=== PATIENT | female | born 1970 | race Caucasian/White ===

== ENCOUNTER → 2019-09-20 10:51 | Outpatient (CLI) | payer OTHER, SELFPAY ==
--- NOTE | 2019-09-20 | DI.RAD.S_ITS ---
PROCEDURE: XR HIP W PEL IF DONE LT 2V INDICATIONS: left hip pain TECHNIQUE: AP pelvis with lateral view(s) of the left hip(s). COMPARISON: None. FINDINGS: Bones: No fractures or dislocations. Prior right total hip arthroplasty, partially visualized low lumbosacral spine fusion procedure between L4 and L5 Pelvic ring appears intact. No suspicious bony lesions. Soft tissues: The visualized bowel gas pattern is normal. No suspicious soft tissue calcifications. IMPRESSION: No trauma found, of note is made of mild osteoarthritis at the left hip. Prior right total hip arthroplasty showing no evidence of device loosening or disruption. Dictated by: Onel Santacruz M.D. on 09/20/2019 at 12:20 Approved by: Onel Santacruz M.D. on 09/20/2019 at 12:21
== END ==
PROVIDERS: Family Provider Family Medicine; PCP Family Medicine; Referring Provider Family Medicine; Visit Provider Family Medicine
DX: M25.552 Pain in left hip (principal); M16.12 Unilateral primary osteoarthritis, left hip; Z96.641 Presence of right artificial hip joint
CPT/HCPCS: 73502

== ENCOUNTER → 2019-10-07 09:04 | Outpatient (CLI) | payer OTHER, SELFPAY ==
--- NOTE | 2019-10-07 | DI.MRI.S_ITS ---
PROCEDURE: MR HIP LT WO CON INDICATIONS: Unilateral primary osteoarthritis, left hip TECHNIQUE: Noncontrast coronal T1 spin echo and STIR through the bony pelvis. Coronal and axial T2 fast spin echo with fat saturation, sagittal T1 spin echo, and oblique axial T2 fast spin echo with fat saturation through the hip. COMPARISON: [facility] Outside [facility], RG, PELVIS 1 OR 2VW, 03/11/2016, 10:21. FINDINGS: Image quality: Excellent. Bones and joints: Postsurgical changes are seen from right total hip arthroplasty. Surgical fixation on the right is also noted in the lumbar spine. A well-demarcated T2 hyperintense lesion in the right iliac bone extending to the acetabulum may represent fibrous dysplasia or a bone cyst versus an intraosseous ganglion. No aggressive features are identified.. Tendons and ligaments: The gluteus medius and minimus tendons appear intact, without associated muscle atrophy. The nearby proximal iliotibial band also appears intact. The iliopsoas tendon appears intact, without adjacent bursal fluid collections or evidence for impingement syndrome. The origin of the hamstring tendon is intact at the ischial tuberosity, as well as the associated sacrotuberous ligament. The straight and reflected heads of the rectus femoris muscle origin appear intact, as well as the conjoint tendon. The ligamentum teres appears intact where visualized. Labrum and cartilage: Full-thickness cartilage loss is seen in the superior aspect of the left hip joint with mild subchondral edema in the acetabulum and mild lateral acetabular spurring. There is degeneration of the anterior and superior labrum including a nondisplaced tear and small 5 mm paralabral cyst anterior superiorly. The femoral head and acetabular morphology appears normal. Soft tissues: A non-specific fluid collection is seen posterolateral to the right hip, likely related to the prior surgery. Visualized muscles demonstrate normal bulk and internal signal. Quadratus femoris muscle demonstrates no internal edema to suggest ischiofemoral impingement. The proximal sciatic neurovascular bundle appears normal adjacent to the hamstring tendons trace free fluid in the pelvis is considered physiologic. Bladder wall thickness is normal. Genitourinary structures and bowel loops appear normal where visualized. IMPRESSION: 1. Full-thickness cartilage loss in the superior aspect of the left hip with subchondral edema and marginal osteophyte formation. 2. Degeneration and nondisplaced tearing of the anterior superior labrum with a 5 mm paralabral cyst. 3. Postsurgical changes from right total hip arthroplasty. A well-defined fluid collection posterolateral to the right hip may represent a postsurgical seroma or a chronic trochanteric bursal effusion. 4. Well-circumscribed nonaggressive appearing T2-hyperintense lesion in the right iliac bone was described in the prior MR pelvis report from 2007 (images are currently unavailable), and is considered benign. 5. Postsurgical changes in the included portion of the lower lumbar spine. Dictated by: Corey Justice M.D. on 10/07/2019 at 9:51 Approved by: Corey Justice M.D. on 10/07/2019 at 10:06
== END ==
PROVIDERS: Family Provider Family Medicine; PCP Family Medicine; Referring Provider Family Medicine; Visit Provider Family Medicine
DX: M16.12 Unilateral primary osteoarthritis, left hip (principal); S73.102A Unspecified sprain of left hip, initial encounter; Z96.641 Presence of right artificial hip joint
CPT/HCPCS: 73721

== ENCOUNTER 2019-12-09 16:41 | Emergency (ER) | payer OTHER, SELFPAY ==
[2019-12-09] VITALS (10 sets, daily range): BP systolic 118–155; BP diastolic 55–67; PULSE 66–86; RESP 16; TEMP 36.9; O2SAT 95–100; BMI 32.5
[2019-12-09 19:28] LABS: Bacteria Urine None Seen; RBC Urine None Seen (0-5/HPF)
[2019-12-09 19:29] LABS: Appearance Urine UA CLEAR; Bilirubin Urine UA NEGATIVE (NEGATIVE); Color Urine UA YELLOW; Glucose Urine UA NEGATIVE (Negative); Ketones Urine UA TRACE (NEGATIVE); Leukocyte Esterase Urine UA NEGATIVE (NEGATIVE); Nitrite Urine UA NEGATIVE (Negative); Occult Blood Urine UA NEGATIVE (Negative); Protein Urine UA NEGATIVE (Negative); Urobilinogen Urine UA 0.2 E.U./dL (0.2)
[2019-12-09 19:38] LABS: Amorphous Sediment Urine 1+; Culture Indicated Urine Cult Not Indicated; Mucus Urine 2+ (Negative); Squamous Epithelial Cell Urine 1-5 /HPF (0-5/HPF); WBC Urine 0-1/HPF (0-5/HPF)
[2019-12-09 19:44] LABS: Add Manual Diff / Slide Review NO; Basophils Absolute Auto 0 /uL (0-100); Basophils Percent Auto 0.3 % (0-2); Eosinophils Absolute Auto 0 /uL (0-450); Hematocrit 31.2 % (36-46); Lymphocytes Absolute Auto 500 /uL (1100-4500); Lymphocytes Percent Auto 8.4 % (25-40); Mean Corpuscular Hemoglobin 23.8 PG (26-34); Mean Corpuscular Volume 74.3 fL (80-100); Monocytes Absolute Auto 400 /uL (0-900); Monocytes Percent Auto 5.8 % (3-14); Neutrophils Absolute Auto 5200 /uL (1500-7000); Neutrophils Percent Auto 85.5 % (50-75); Platelet Count 314 X10^3/uL (150-400); Red Cell Distribution Width 16.7 % (11.6-14.8)
[2019-12-09 19:57] LABS: Alanine Aminotransferase 49 IU/L (<35); Albumin 3.9 g/dL (3.5-5.0); Albumin Globulin Ratio 1.1 (1.0-2.8); Alkaline Phosphatase 105 U/L (38-126); Aspartate Aminotransferase 63 IU/L (14-36); BUN Creatinine Ratio 18.9 (6-22); Bilirubin Total 0.8 mg/dL (0.2-1.3); Blood Urea Nitrogen 10 mg/dL (7-17); Calcium 8.7 mg/dL (8.4-10.2); Carbon Dioxide 30 mmol/L (22-32); Chloride 100 mmol/L (98-107); Estimated Glomerular Filt Rate > 60.0 mL/min (>60); Globulin 3.4 g/dL (1.7-4.1); Glucose 104 mg/dL (70-100); HEMOLYSIS < 15 (0-50); Potassium 3.3 mmol/L (3.4-5.1); Sodium 135 mmol/L (137-145); Total Protein 7.3 g/dL (6.3-8.2)
[2019-12-09] MEDS: HYDROCODONE/ACET 5/325 TABLET 1 TAB PO (20:05)
[2019-12-09 20:20] LABS: Lipase 163 U/L (23-300)
--- NOTE | 2019-12-09 20:35 | DI.CT.S_ITS ---
PROCEDURE: CT ABDOMEN PELVIS W CON INDICATIONS: periumbilical and pelvic/flank pain TECHNIQUE: After the administration of intravenous contrast, 5 mm thick sections acquired from the diaphragm to the symphysis. 5 mm coronal and sagittal reformats were acquired. For radiation dose reduction, the following was used: automated exposure control, adjustment of mA and/or kV according to patient size. COMPARISON: None. FINDINGS: Image quality: Excellent. ABDOMEN: Lung bases: Lung bases are clear. Heart size is normal. Solid organs: Liver is normal in size and enhancement. Gallbladder is distended. No visible pericholecystic inflammation. No visible calcifications . The intrahepatic biliary tree is mildly dilated. The extrahepatic common duct is normal caliber. Pancreas enhances normally. Spleen is normal in size and enhancement. No adrenal nodules. Kidneys demonstrate normal size and enhancement, without hydronephrosis. Peritoneum and bowel: Bowel loops demonstrate normal wall thickness and caliber. Increased quantity of solid stool present in the colon. A very short appendix or appendiceal stump is present without inflammation. No free fluid or air. Nodes and vessels: No retroperitoneal or mesenteric adenopathy by size criteria. Aorta and inferior vena cava are normal in size. Miscellaneous: Tiny fat containing umbilical hernia. PELVIS: Genitourinary: Bladder wall thickness is normal. Uterus and ovaries appear normal. Miscellaneous: No inguinal hernias or adenopathy. Bones: No suspicious bony lesions. There is surgical fixation at the L4-5 level and right hip arthroplasty changes. Degenerative disc and endplate changes in the lumbar spine. Block vertebra of T12-L1. No vertebral body compression fractures. IMPRESSION: 1. Distended gallbladder and mild intrahepatic biliary dilatation. There may be a noncalcified biliary obstruction. Correlate with LFTs and consider right upper quadrant ultrasound. 2. Increased stool quantity. 3. No other acute process. Dictated by: Agnes Griggs M.D. on 12/09/2019 at 21:21 Approved by: Agnes Griggs M.D. on 12/09/2019 at 21:27
--- NOTE | 2019-12-09 20:35 | DI.US.S_ITS ---
PROCEDURE: US PELVIC COMPLETE INDICATIONS: PELVIC PAIN. POSSIBLE ABSCESS TECHNIQUE: Real-time scanning was performed of the pelvic organs, with image documentation. Additional endovaginal scanning was necessary due to incomplete visualization of the adnexal and endometrial structures by transabdominal scanning. COMPARISON: [facility], CT, CT ABDOMEN PELVIS W CON, 12/09/2019, 20:37. FINDINGS: Transabdominal scanning: Limited scanning through the kidneys shows no hydronephrosis. No pathologic free abdominal or pelvic fluid. Endovaginal scanning: Uterus: Uterus is normal in size at 10.6 x 5.0 x 7.7 cm. Uterus is retroverted. There is a 2.4 x 1.3 x 2.0 centimeter left posterior intramural uterine fibroid. The endometrium measures 10.8 mm in combined thickness. Trace fluid noted within the cervical canal. Ovaries: Right ovary measures 3.5 x 2.5 by 3.4 centimeters. Left ovary measures 3.0 x 1.8 x 2.3 centimeters. There is a 2.5 x 1.4 x 2.5 centimeter complex right ovarian cyst which may represent hemorrhagic cyst. Doppler evaluation demonstrates normal vascular flow in the ovaries. IMPRESSION: 1. Uterine fibroid. 2. 2.5 x 1.4 x 2.5 centimeter complex right ovarian cyst which likely represents a hemorrhagic cyst. Recommend follow-up pelvic ultrasound in 4-6 weeks to assess for resolution of the finding. 3. No evidence of ovarian torsion. Please note ultrasound cannot exclude intermittent ovarian torsion. Dictated by: Jennifer Plata MD, PhD on 12/10/2019 at 8:39 Approved by: Jennifer Plata MD, PhD on 12/10/2019 at 8:42
--- NOTE | 2019-12-09 20:38 | ED.FEMALEGU ---
HPI - Female Genitourinary <Shania Davis PA-C - Last Filed: 12/10/19 11:26> General Chief complaint: Urogenital-Female Stated complaint: fever,body aches, dry heaves, chills Time Seen by Provider: 12/09/19 19:04 Source: patient Mode of arrival: Ambulatory Limitations: no limitations History of Present Illness HPI Narrative: 49 F with a history of a right hip replacement, lumbar spinal surgery, chronic urinary urgency and dyspareunia presents to the emergency department complaining of low-grade fever, chills, pelvic pain and pressure, nausea and vomiting. Patient states that she was diagnosed with a urinary tract infection few weeks ago started on Macrobid for 2 days but her symptoms worsened, she was then started on Cipro took a high dose of this for 3 days improved but never really ?got better? then her symptoms returned again last night, she has been having worsening pelvic pain very low down in addition to nausea and 1 episode of vomiting earlier today. She has been feeling increasing pelvic pressure and pain and while she has chronic difficulty urinating she feels this has worsened in the last 24 hours. She went to her primary care provider and they noted that she should see gynecology as an outpatient for possible prolapse, they later advised her she should come to the emergency department to get imaging done in the event that she could potentially have a pelvic abscess. Patient is on regular pain medicine regimen due to her chronic pain issues, initially notes her pain to be fairly low but then later says it is creeping up to an 8 or 9. Patient endorses dyspareunia ever since her back surgery and even prior to her surgery. She is unsure if this has worsened recently. Related Data Home Medications Medication Instructions Recorded Confirmed AMOXICILLIN/CLAVULANATE POTASS 875 mg PO BID #0 05/06/07 (Augmentin) IBUPROFEN (Motrin / Advil) 600 mg PO BID #0 05/06/07 Oxycodone/Acetaminophen (Percocet 0 PO * UK DOSE/FREQUENCY #0 05/06/07 5-325 MG Tablet) Promethazine HCl (Phenergan) 25 mg PO PRN #0 05/06/07 RIMANTADINE HCL (Flumadine) 100 mg PO BID #0 05/06/07 Previous Rx's Medication Instructions Recorded ciprofloxacin HCl 500 mg PO BID 7 Days #14 tab 12/10/19 ondansetron 4 mg PO Q8H #14 tab 12/10/19 oxycodone-acetaminophen 1 tab PO Q8H PRN #14 tab 12/10/19 Allergies Allergy/AdvReac Type Severity Reaction Status Date / Time No Known Drug Allergies Allergy Verified 12/09/19 20:05 Review of Systems <Shania Davis PA-C - Last Filed: 12/10/19 11:26> Review of Systems Narrative: GENERAL: Positive for chills yesterday, negative for fatigue, malaise, positive for low-grade fever last night, sweats. HEENT: Denies sinus pain, ear pain, sore throat, difficulty swallowing, dizziness. RESPIRATORY: Denies dyspnea, cough, wheezing, hemoptysis, sputum. CARDIOVASCULAR: Denies chest pain, palpitations, orthopnea, edema, GASTROINTESTINAL: Positive for nausea, vomiting, pelvic abdominal pain, mild diarrhea earlier today, negative for constipation, melena. : Denies dysuria, frequency, incontinence, hematuria, urinary retention, positive for urgency, difficulty urinating. MUSCULOSKELETAL: denies weakness, joint pain, or bony pain SKIN: Denies rash, skin lesions, or other NEUROLOGIC: Denies weakness, headache, numbness, change in speech, confusion, seizures, incoordination. PSYCHIATRIC: No concerning psychosocial issues. 12 point review of systems is negative except for those stated above Patient History <Shania Davis PA-C - Last Filed: 12/10/19 11:26> alcohol intake frequency: a few times a month Alcohol type: wine Substance Use Type: does not use Exam <Shania Davis PA-C - Last Filed: 12/10/19 11:26> Narrative Exam Narrative: GENERAL: 49 year old patient appears stated age. Well-nourished, well-developed patient, in mild distress. HEAD: Atraumatic. Normocephalic. EYES: Pupils equal round and reactive. Extraocular motions intact. No scleral icterus. No injection or drainage. ENT: Nose without bleeding, purulent drainage. Throat without erythema, tonsillar hypertrophy or exudate. Airway patent. NECK: Trachea midline. Non tender CARDIOVASCULAR: Regular rate and rhythm without murmurs, gallops, or rubs. RESPIRATORY: Clear to auscultation. Breath sounds equal bilaterally. No wheezes, rales, or rhonchi. GASTROINTESTINAL: Abdomen soft, she is tender over the epigastric area, slightly tender over the right upper quadrant, negative Ramos's sign, she is tender over the periumbilical region and very low in the pelvis over the bladder otherwise non-tender, nondistended. : Exam performed with female RN present as records analysis manager also in the room. External genitalia normal in appearance, no lesions. After placing the speculum the patient had significant discomfort, was not able to insert the speculum far enough to clearly visualize the cervical os, small amount of whitish yellow discharge present in the vaginal vault. I think it is possible that the patient may have a prolapse of her bladder into the vaginal vault, did perform a bimanual exam, patient had moderate tenderness with this and was most notably tender on the patient's left internally, believed to feel a small palpable mass in the area of tenderness and discomfort for the patient. EXTREMITIES: No edema or joint tenderness. BACK: There is a midline scar over the lumbar region, she is tender on the right flank, otherwise Nontender without deformity or crepitance. No left flank tenderness. NEURO: AOx3. SKIN: No rash or erythema of visible areas Initial Vital Signs Initial Vital Signs: Vital Signs Temperature 98.5 F 12/09/19 16:54 Pulse Rate 78 12/09/19 16:54 Respiratory Rate 16 12/09/19 16:54 Blood Pressure 139/62 12/09/19 16:54 Pulse Oximetry 95 12/09/19 16:54 <Ej Champion MD - Last Filed: 12/13/19 07:31> Initial Vital Signs Initial Vital Signs: Vital Signs Temperature 98.5 F 12/09/19 16:54 Pulse Rate 78 12/09/19 16:54 Respiratory Rate 16 12/09/19 16:54 Blood Pressure 139/62 12/09/19 16:54 Pulse Oximetry 95 12/09/19 16:54 Scores <Shania Davis PA-C - Last Filed: 12/10/19 11:26> GCS Aurora coma scale eye opening: Spontaneous Aurora coma scale verbal response: Orientated Aurora coma scale motor response: Obey commands Aurora coma scale total score: 15 Course <Shania Davis PA-C - Last Filed: 12/10/19 11:26> Course Course Narrative: Ultrasound arrived, spoke with them and do plan to evaluate the gallbladder as well she does have slight transaminitis, and did have epigastric and right upper quadrant tenderness on exam, as well as concerning changes on her CT in the context of nausea and vomiting so I do feel it is appropriate to evaluate her gallbladder even though this is not her primary complaint when she came in today 2250 Patient did have significant tenderness on the pelvic exam, however I am less inclined to think it is related to PID and more likely correlates to the fibroid noted versus the hemorrhagic cyst in her right ovary. I do think that the patient has had chronic vaginal pain and discomfort since prior to and worsened after her low back surgery, and this is more likely related to nerve issues. Did discuss again with the inpatient the value of following up with gynecology. I do think that she is still suffering from a probable pyelonephritis as she still has right CVA tenderness and I do not think that this is explained by a gallbladder etiology. Her urine today was not remarkable for an evident UTI however she has been on antibiotics recently and I would not expect to see bacteria present. Patient declined swabs for STIs, did do a wet mount to assess for BV and yeast. 12:11 Orders Ordered: Discontinued Medications Acetaminophen/Butalbital/Caffeine (Fioricet) 1 each PO NOW ONE Stop: 12/09/19 20:37 Last Admin: 12/09/19 20:48 Dose: 1 each Documented by: MITA Hydrocodone Bitart/Acetaminophen ([place] 5/325) 1 tab PO NOW ONE Stop: 12/09/19 20:01 Last Admin: 12/09/19 20:05 Dose: 1 tab Documented by: MITA Ciprofloxacin (Cipro) 500 mg PO NOW ONE Stop: 12/10/19 00:47 Last Admin: 12/10/19 00:57 Dose: 500 mg Documented by: HANNAH Hydromorphone HCl (Dilaudid) 1 mg IV NOW ONE Stop: 12/09/19 20:35 Last Admin: 12/09/19 20:47 Dose: 1 mg Documented by: MITA Hydromorphone HCl (Dilaudid) 0.5 mg IV NOW ONE Stop: 12/10/19 00:05 Last Admin: 12/10/19 00:09 Dose: 0.5 mg Documented by: KGALLAG Sodium Chloride (Normal Saline 0.9%) 1,000 mls @ 1,000 mls/hr IV BOLUS ONE Stop: 12/09/19 21:33 Last Infusion: 12/09/19 22:13 Dose: 0 mls/hr Documented by: Admin: 12/09/19 20:48 Dose: 1,000 mls/hr Documented by: MITA Ondansetron HCl (Zofran) 4 mg IV NOW ONE Stop: 12/09/19 20:52 Last Admin: 12/09/19 22:06 Dose: 4 mg Documented by: MITA Oxycodone/Acetaminophen (Percocet 5/325) 1 tab PO NOW ONE Stop: 12/09/19 19:05 Last Admin: 12/09/19 19:58 Dose: Not Given Documented by: MITA Vital Signs Vital signs: Vital Signs - 8 hr 12/09/19 19:45 12/09/19 20:36 12/09/19 20:37 Pulse Rate 77 77 Blood Pressure 155/67 H Pulse Oximetry 100 99 99 12/09/19 21:03 12/09/19 21:04 12/09/19 21:30 Pulse Rate 86 80 66 Blood Pressure 150/67 H 128/60 Pulse Oximetry 99 98 96 12/09/19 22:00 12/09/19 22:30 12/09/19 23:02 Pulse Rate 66 70 68 Blood Pressure 118/58 L 119/55 L Pulse Oximetry 96 95 98 <Ej Chmapion MD - Last Filed: 12/13/19 07:31> Orders Ordered: Discontinued Medications Acetaminophen/Butalbital/Caffeine (Fioricet) 1 each PO NOW ONE Stop: 12/09/19 20:37 Last Admin: 12/09/19 20:48 Dose: 1 each Documented by: MITA Hydrocodone Bitart/Acetaminophen ([place] 5/325) 1 tab PO NOW ONE Stop: 12/09/19 20:01 Last Admin: 12/09/19 20:05 Dose: 1 tab Documented by: MITA Ciprofloxacin (Cipro) 500 mg PO NOW ONE Stop: 12/10/19 00:47 Last Admin: 12/10/19 00:57 Dose: 500 mg Documented by: HANNAH Hydromorphone HCl (Dilaudid) 1 mg IV NOW ONE Stop: 12/09/19 20:35 Last Admin: 12/09/19 20:47 Dose: 1 mg Documented by: MITA Hydromorphone HCl (Dilaudid) 0.5 mg IV NOW ONE Stop: 12/10/19 00:05 Last Admin: 12/10/19 00:09 Dose: 0.5 mg Documented by: KGALLAG Sodium Chloride (Normal Saline 0.9%) 1,000 mls @ 1,000 mls/hr IV BOLUS ONE Stop: 12/09/19 21:33 Last Infusion: 12/09/19 22:13 Dose: 0 mls/hr Documented by: Admin: 12/09/19 20:48 Dose: 1,000 mls/hr Documented by: MITA Ondansetron HCl (Zofran) 4 mg IV NOW ONE Stop: 12/09/19 20:52 Last Admin: 12/09/19 22:06 Dose: 4 mg Documented by: MITA Oxycodone/Acetaminophen (Percocet 5/325) 1 tab PO NOW ONE Stop: 12/09/19 19:05 Last Admin: 12/09/19 19:58 Dose: Not Given Documented by: MITA Vital Signs Vital signs: Vital Signs - 8 hr 12/09/19 19:45 12/09/19 20:36 12/09/19 20:37 Pulse Rate 77 77 Blood Pressure 155/67 H Pulse Oximetry 100 99 99 12/09/19 21:03 12/09/19 21:04 12/09/19 21:30 Pulse Rate 86 80 66 Blood Pressure 150/67 H 128/60 Pulse Oximetry 99 98 96 12/09/19 22:00 12/09/19 22:30 12/09/19 23:02 Pulse Rate 66 70 68 Blood Pressure 118/58 L 119/55 L Pulse Oximetry 96 95 98 MDM - Female Genitourinary <Shania Davis PA-C - Last Filed: 12/10/19 11:26> Differential Diagnosis Differential diagnosis: Likely urinary tract infection, bacterial vaginosis, trichomoniasis, cervicitis, vaginitis, cystitis and other (pyelonephritis, pelvic floor disorder, prolapsed bladder, ovarian cyst, fibroid, cholecystitis) Medical Records Medical records narrative: Lab Data Result diagrams: 12/09/19 19:30 12/09/19 19:30 Labs: Lab Results 12/09/19 12/09/19 12/09/19 Range/Units 19:03 19:30 19:30 WBC 6.0 (4.5-11.0) X10^3/uL RBC 4.20 (4.0-5.2) X10^6/uL Hgb 10.0 L (12.0-16.0) g/dL Hct 31.2 L (36-46) % MCV 74.3 L (80-100) fL MCH 23.8 L (26-34) PG MCHC 32.0 (30-36) % RDW 16.7 H (11.6-14.8) % Plt Count 314 (150-400) X10^3/uL Neut % (Auto) 85.5 H (50-75) % Lymph % (Auto) 8.4 L (25-40) % [place] % (Auto) 5.8 (3-14) % Eos % (Auto) 0.0 L (2-4) % Baso % (Auto) 0.3 (0-2) % Neut # (Auto) 5200 (3837-3849) /uL Lymph # (Auto) 500 L (9537-4249) /uL [place] # (Auto) 400 (0-900) /uL Eos # (Auto) 0 (0-450) /uL Baso # (Auto) 0 (0-100) /uL Sodium 135 L (137-145) mmol/L Potassium 3.3 L (3.4-5.1) mmol/L Chloride 100 (98-107) mmol/L Carbon Dioxide 30 (22-32) mmol/L BUN 10 (7-17) mg/dL Creatinine 0.53 (0.52-1.04) mg/dL Estimated GFR > 60.0 (>60) mL/min BUN/Creatinine Ratio 18.9 (6-22) Glucose 104 H (70-100) mg/dL Calcium 8.7 (8.4-10.2) mg/dL Total Bilirubin 0.8 (0.2-1.3) mg/dL AST 63 H (14-36) IU/L ALT 49 H (<35) IU/L Alkaline Phosphatase 105 (38-126) U/L Total Protein 7.3 (6.3-8.2) g/dL Albumin 3.9 (3.5-5.0) g/dL Globulin 3.4 (1.7-4.1) g/dL Albumin/Globulin Ratio 1.1 (1.0-2.8) Lipase (23-300) U/L Urine Color Yellow Urine Appearance Clear Urine pH 6.0 (4.5-8.0) Ur Specific [place] 1.010 (1.000-1.035) Urine Protein Negative (Negative) Urine Glucose (UA) Negative (Negative) g/dL Urine Ketones Trace H (NEGATIVE) Urine Occult Blood Negative (Negative) Urine Nitrate Negative (Negative) Urine Bilirubin Negative (NEGATIVE) Urine Urobilinogen 0.2 (0.2) E.U./dL Ur Leukocyte Esterase Negative (NEGATIVE) Urine RBC None seen (0-5/HPF) Urine WBC 0-1/hpf (0-5/HPF) Ur Squamous Epith Cells 1-5 /hpf (0-5/HPF) Amorphous Sediment 1+ Urine Bacteria None seen (None) Urine Mucus 2+ H (Negative) Ur Culture Indicated? Cult not indicated COVID-19 PCR (Negative) 12/09/19 12/10/19 Range/Units 19:30 00:12 WBC (4.5-11.0) X10^3/uL RBC (4.0-5.2) X10^6/uL Hgb (12.0-16.0) g/dL Hct (36-46) % MCV (80-100) fL MCH (26-34) PG MCHC (30-36) % RDW (11.6-14.8) % Plt Count (150-400) X10^3/uL Neut % (Auto) (50-75) % Lymph % (Auto) (25-40) % [place] % (Auto) (3-14) % Eos % (Auto) (2-4) % Baso % (Auto) (0-2) % Neut # (Auto) (0785-0722) /uL Lymph # (Auto) (8238-4681) /uL [place] # (Auto) (0-900) /uL Eos # (Auto) (0-450) /uL Baso # (Auto) (0-100) /uL Sodium (137-145) mmol/L Potassium (3.4-5.1) mmol/L Chloride (98-107) mmol/L Carbon Dioxide (22-32) mmol/L BUN (7-17) mg/dL Creatinine (0.52-1.04) mg/dL Estimated GFR (>60) mL/min BUN/Creatinine Ratio (6-22) Glucose (70-100) mg/dL Calcium (8.4-10.2) mg/dL Total Bilirubin (0.2-1.3) mg/dL AST (14-36) IU/L ALT (<35) IU/L Alkaline Phosphatase (38-126) U/L Total Protein (6.3-8.2) g/dL Albumin (3.5-5.0) g/dL Globulin (1.7-4.1) g/dL Albumin/Globulin Ratio (1.0-2.8) Lipase 163 (23-300) U/L Urine Color Urine Appearance Urine pH (4.5-8.0) Ur Specific [place] (1.000-1.035) Urine Protein (Negative) Urine Glucose (UA) (Negative) g/dL Urine Ketones (NEGATIVE) Urine Occult Blood (Negative) Urine Nitrate (Negative) Urine Bilirubin (NEGATIVE) Urine Urobilinogen (0.2) E.U./dL Ur Leukocyte Esterase (NEGATIVE) Urine RBC (0-5/HPF) Urine WBC (0-5/HPF) Ur Squamous Epith Cells (0-5/HPF) Amorphous Sediment Urine Bacteria (None) Urine Mucus (Negative) Ur Culture Indicated? COVID-19 PCR Negative (Negative) Point of Care Testing Test Results Negative Urine Dip Bedside Urine Glucose Negative Bedside Urine Bilirubin - Negative Bedside Urine Ketone - Negative Urine Specific [place] 1.015 Bedside Urine Occult Blood - Negative Bedside Urine pH 6.0 Bedside Urine Protein - Negative Bedside Urine Urobilinogen - Negative Bedside Urine Nitrite - Negative Bedside Urine Leukocytes - Negative Esterase Imaging Data CT scan - abdomen/pelvis: Attestation: I personally reviewed and interpreted this imaging study as follows: Radiologist's Impression: [address] [address] [address] Scan Report Signed Patient: Marina Ellis RMR#: [id number] : 1970Acct:[id number] Age/Sex: 49 / FDate of Service: 12/09/19 Loc: ED Accession Number: [id number] Procedure: CT abdomen pelvis w con Ordering Provider: Shania Davis P.A-C PROCEDURE: CT ABDOMEN PELVIS W CON INDICATIONS: periumbilical and pelvic/flank pain TECHNIQUE: After the administration of intravenous contrast, 5 mm thick sections acquired from the diaphragm to the symphysis. 5 mm coronal and sagittal reformats were acquired. For radiation dose reduction, the following was used: automated exposure control, adjustment of mA and/or kV according to patient size. COMPARISON: None. FINDINGS: Image quality: Excellent. ABDOMEN: Lung bases: Lung bases are clear. Heart size is normal. Solid organs: Liver is normal in size and enhancement. Gallbladder is distended. No visible pericholecystic inflammation. No visible calcifications . The intrahepatic biliary tree is mildly dilated. The extrahepatic common duct is normal caliber. Pancreas enhances normally. Spleen is normal in size and enhancement. No adrenal nodules. Kidneys demonstrate normal size and enhancement, without hydronephrosis. Peritoneum and bowel: Bowel loops demonstrate normal wall thickness and caliber. Increased quantity of solid stool present in the colon. A very short appendix or appendiceal stump is present without inflammation. No free fluid or air. Nodes and vessels: No retroperitoneal or mesenteric adenopathy by size criteria. Aorta and inferior vena cava are normal in size. Miscellaneous: Tiny fat containing umbilical hernia. PELVIS: Genitourinary: Bladder wall thickness is normal. Uterus and ovaries appear normal. Miscellaneous: No inguinal hernias or adenopathy. Bones: No suspicious bony lesions. There is surgical fixation at the L4-5 level and right hip arthroplasty changes. Degenerative disc and endplate changes in the lumbar spine. Block vertebra of T12-L1. No vertebral body compression fractures. IMPRESSION: 1. Distended gallbladder and mild intrahepatic biliary dilatation. There may be a noncalcified biliary obstruction. Correlate with LFTs and consider right upper quadrant ultrasound. 2. Increased stool quantity. 3. No other acute process. Dictated by: Agnes Griggs M.D. on 12/09/2019 at 21:21 Approved by: Agnes Griggs M.D. on 12/09/2019 at 21:27 US - abdomen: Attestation: I personally reviewed and interpreted this imaging study as follows: Radiologist's Impression: Ultrasound abdomen limited comparison: None findings: Liver normal size and echotexture. Right lobe 14.7 cm length. Main portal vein antegrade. Visualized pancreas unremarkable. Gallbladder unremarkable without stone formation or wall thickening. No bile duct dilatation. Common duct 3.4 mm diameter. No ultrasonographic Ramos sign. Impression: No significant abnormalities. Electronically signed On December 09, 2019 11:50 a.m. 3:34 p.m. PTT by: Anshul Das MD US - MACHINE II COREMAKER: Attestation: I personally reviewed and interpreted this imaging study as follows: Radiologist's Impression: Transabdominal and endovaginal pelvic ultrasound with ovarian Doppler studies Findings: Uterus 10.6 cm x 5.0 cm x 7.7 cm. Endometrium 11 mm. No significant fluid in cul-de-sac. 2.4 cm fibroid noted. Right ovary 3.5 cm x 2.5 cm x 3.4 cm. 2.5 cm x 2.5 cm hemorrhagic cyst. Left ovary 3.0 cm x 1.8 cm x 2.3 cm. No focal abnormality Doppler interrogation of the arterial and venous structure of both ovaries performed using color and spectral waveform analysis. There is normal flow to both ovaries without evidence for ovarian torsion. Impression: 2.5 cm hemorrhagic right ovarian cyst. 2.4 cm fibroid noted. Electronically signed December 09, 2019 11:50 a.m. 4:50 p.m. PDT by: Anshul Das MD [facility] Narrative Medical decision making narrative: 49-year-old female history of lumbar surgery, left hip surgery, UTI with pyelonephritis 2 weeks ago presents to the emergency department with feelings of never fully having improved from pyelo, and now 24 hours of new low-grade fever, episode of chills, body aches, episode of vomiting this morning and ongoing nausea with right flank pain and low pelvic pain and pressure, also on complaining of increased feeling of difficulty with urination due to pressure pelvis. Labs unremarkable, however she has been on antibiotics recently, Cipro, ongoing flank tenderness low pelvic pain, CT scan is unremarkable, she did have right upper quadrant tenderness and a positive Ramos sign as well as enlarged gallbladder on CT pelvic ultrasound and gallbladder ultrasound pursued, gallbladder ultrasound returned with no abnormal findings, however she was noted to have a hemorrhagic cyst in her right ovary and a fibroid. Pelvic exam caused pain for the patient however I do not believe she is suffering from PID, given the duration of her pelvic discomfort/long history of dyspareunia and the location of her pain which is very low in her vagina and does not extend into the pelvis. Postvoid residual was 0. Patient is ultimately treated for pyelonephritis based on her flank tenderness and recent returning low-grade fever and chills, COVID returns negative. Blood cultures are not obtained, no evidence of early sepsis. BV yeast Trichomonas returns negative. Patient is advised to follow-up with both Women's Health, gynecology as well as Urology. Etiology of her pain that has worsened and is low in the pelvis is unclear however it could be due to her cyst possibly her fibroid. Do believe she may have some prolapse of her bladder. Uterus was normal on ultrasound. Encourage patient to pursue follow-up care for further evaluation with specialist and patient is in agreement, emergency return precautions provided, all questions answered. <Ej Champion MD - Last Filed: 12/13/19 07:31> Lab Data Labs: Lab Results 12/09/19 12/09/19 12/09/19 Range/Units 19:03 19:30 19:30 WBC 6.0 (4.5-11.0) X10^3/uL RBC 4.20 (4.0-5.2) X10^6/uL Hgb 10.0 L (12.0-16.0) g/dL Hct 31.2 L (36-46) % MCV 74.3 L (80-100) fL MCH 23.8 L (26-34) PG MCHC 32.0 (30-36) % RDW 16.7 H (11.6-14.8) % Plt Count 314 (150-400) X10^3/uL Neut % (Auto) 85.5 H (50-75) % Lymph % (Auto) 8.4 L (25-40) % [place] % (Auto) 5.8 (3-14) % Eos % (Auto) 0.0 L (2-4) % Baso % (Auto) 0.3 (0-2) % Neut # (Auto) 5200 (3693-6306) /uL Lymph # (Auto) 500 L (7458-6652) /uL [place] # (Auto) 400 (0-900) /uL Eos # (Auto) 0 (0-450) /uL Baso # (Auto) 0 (0-100) /uL Sodium 135 L (137-145) mmol/L Potassium 3.3 L (3.4-5.1) mmol/L Chloride 100 (98-107) mmol/L Carbon Dioxide 30 (22-32) mmol/L BUN 10 (7-17) mg/dL Creatinine 0.53 (0.52-1.04) mg/dL Estimated GFR > 60.0 (>60) mL/min BUN/Creatinine Ratio 18.9 (6-22) Glucose 104 H (70-100) mg/dL Calcium 8.7 (8.4-10.2) mg/dL Total Bilirubin 0.8 (0.2-1.3) mg/dL AST 63 H (14-36) IU/L ALT 49 H (<35) IU/L Alkaline Phosphatase 105 (38-126) U/L Total Protein 7.3 (6.3-8.2) g/dL Albumin 3.9 (3.5-5.0) g/dL Globulin 3.4 (1.7-4.1) g/dL Albumin/Globulin Ratio 1.1 (1.0-2.8) Lipase (23-300) U/L Urine Color Yellow Urine Appearance Clear Urine pH 6.0 (4.5-8.0) Ur Specific [place] 1.010 (1.000-1.035) Urine Protein Negative (Negative) Urine Glucose (UA) Negative (Negative) g/dL Urine Ketones Trace H (NEGATIVE) Urine Occult Blood Negative (Negative) Urine Nitrate Negative (Negative) Urine Bilirubin Negative (NEGATIVE) Urine Urobilinogen 0.2 (0.2) E.U./dL Ur Leukocyte Esterase Negative (NEGATIVE) Urine RBC None seen (0-5/HPF) Urine WBC 0-1/hpf (0-5/HPF) Ur Squamous Epith Cells 1-5 /hpf (0-5/HPF) Amorphous Sediment 1+ Urine Bacteria None seen (None) Urine Mucus 2+ H (Negative) Ur Culture Indicated? Cult not indicated COVID-19 PCR (Negative) 12/09/19 12/10/19 Range/Units 19:30 00:12 WBC (4.5-11.0) X10^3/uL RBC (4.0-5.2) X10^6/uL Hgb (12.0-16.0) g/dL Hct (36-46) % MCV (80-100) fL MCH (26-34) PG MCHC (30-36) % RDW (11.6-14.8) % Plt Count (150-400) X10^3/uL Neut % (Auto) (50-75) % Lymph % (Auto) (25-40) % [place] % (Auto) (3-14) % Eos % (Auto) (2-4) % Baso % (Auto) (0-2) % Neut # (Auto) (5755-5909) /uL Lymph # (Auto) (2520-8176) /uL [place] # (Auto) (0-900) /uL Eos # (Auto) (0-450) /uL Baso # (Auto) (0-100) /uL Sodium (137-145) mmol/L Potassium (3.4-5.1) mmol/L Chloride (98-107) mmol/L Carbon Dioxide (22-32) mmol/L BUN (7-17) mg/dL Creatinine (0.52-1.04) mg/dL Estimated GFR (>60) mL/min BUN/Creatinine Ratio (6-22) Glucose (70-100) mg/dL Calcium (8.4-10.2) mg/dL Total Bilirubin (0.2-1.3) mg/dL AST (14-36) IU/L ALT (<35) IU/L Alkaline Phosphatase (38-126) U/L Total Protein (6.3-8.2) g/dL Albumin (3.5-5.0) g/dL Globulin (1.7-4.1) g/dL Albumin/Globulin Ratio (1.0-2.8) Lipase 163 (23-300) U/L Urine Color Urine Appearance Urine pH (4.5-8.0) Ur Specific [place] (1.000-1.035) Urine Protein (Negative) Urine Glucose (UA) (Negative) g/dL Urine Ketones (NEGATIVE) Urine Occult Blood (Negative) Urine Nitrate (Negative) Urine Bilirubin (NEGATIVE) Urine Urobilinogen (0.2) E.U./dL Ur Leukocyte Esterase (NEGATIVE) Urine RBC (0-5/HPF) Urine WBC (0-5/HPF) Ur Squamous Epith Cells (0-5/HPF) Amorphous Sediment Urine Bacteria (None) Urine Mucus (Negative) Ur Culture Indicated? COVID-19 PCR Negative (Negative) Point of Care Testing Test Results Negative Urine Dip Bedside Urine Glucose Negative Bedside Urine Bilirubin - Negative Bedside Urine Ketone - Negative Urine Specific [place] 1.015 Bedside Urine Occult Blood - Negative Bedside Urine pH 6.0 Bedside Urine Protein - Negative Bedside Urine Urobilinogen - Negative Bedside Urine Nitrite - Negative Bedside Urine Leukocytes - Negative Esterase Discharge Plan Departure Patient Disposition: Home Clinical Impression: Pelvic pain, Pyelonephritis, COVID-19 ruled out Discharge Date/Time: 12/10/19 01:30 Instructions: DI for Kidney Infection, DI for Dyspareunia Activity Restrictions/Additional Instructions: Thank you for letting us be part of your care in the emergency department today. Your labs today were looking good, I do think that is appropriate to treat you for pyelonephritis based on the fact that you still have right flank pain over your kidney, in based on your recent symptoms it think it is likely that you need additional antibiotics to treat this. Your ultrasound of your gallbladder actually looked very normal, your gallbladder did look enlarged on the CT scan we performed however I do not think that there is anything of concern with your gallbladder today. Your ultrasound of your pelvis did show that you have a hemorrhagic meaning blood-filled cyst on your right ovary and you also have a fibroid that is about 2.4 cm in size that is seen. It is certainly possible that these could explain some or most of the pain you have been experiencing, however you do have chronic pelvic pain issues and I think these chronic pain issues are more likely related to nerve problems given that you have had multiple surgeries. I do think you should follow-up with a bottom scrubber and/ or urologist for further evaluation and assessment of your pelvic discomfort and assessment of your bladder issues and possible prolapse of your bladder. There is no evidence of a urinary tract infection today however you have been taking antibiotics recently so I would not expect to see this. I am going to prescribe some pain medicine for you as I do think that you are having additional pain related to possibly your cyst and the fibroid you have present. Please take the antibiotics as prescribed as well. I have also provided a work note for you. And include information for our urologist that works out of [facility]. There is no evidence of an emergent or life threatening illness at this time, but follow up with your doctor in 1-2 days is recommended nonetheless to continue to rule out serious underlying causes of your symptoms. Please call the office for an appointment. Please return to the Emergency Department for any worsening or persistent symptoms. Please take medications as directed. Prescriptions: New ciprofloxacin HCl 500 mg tablet 500 mg PO BID 7 Days Qty: 14 RF: 0 ondansetron 4 mg tablet,disintegrating 4 mg PO Q8H Qty: 14 RF: 0 oxycodone-acetaminophen 5-325 mg tablet 1 tab PO Q8H PRN (Reason: pain) Qty: 14 RF: 0 No Action AMOXICILLIN/CLAVULANATE POTASS (Augmentin) 875 mg PO BID Qty: 0 RF: 0 Promethazine HCl (Phenergan) 25 mg PO PRN Qty: 0 RF: 0 Oxycodone/Acetaminophen (Percocet 5-325 MG Tablet) 0 PO * UK DOSE/FREQUENCY Qty: 0 RF: 0 RIMANTADINE HCL (Flumadine) 100 mg PO BID Qty: 0 RF: 0 IBUPROFEN (Motrin / Advil) 600 mg PO BID Qty: 0 RF: 0 Referrals: Margret Cavazos MD [Physician] - Ej Tenorio DO [Primary Care Provider] - Stand Alone Forms: Work Release Note <Ej Champion MD - Last Filed: 12/13/19 07:31> [facility] I was immediately available in the department for consultation. This documentation has been reviewed and I agree with assessment and plan. Supervised by Ej Champion MD
[2019-12-09] MEDS: HYDROMORPHONE 1 MG INJ IV (20:47)
[2019-12-09] MEDS: SODIUM CHLORIDE 0.9% 1,000 ML 1000 ML IV (20:48)
[2019-12-09] MEDS: BUTALB/APAP/CAFFEINE 50/325/40 TABLET 1 EACH PO (20:48)
[2019-12-09] MEDS: ONDANSETRON 4 MG/2 ML INJ IV (22:06)
--- NOTE | 2019-12-09 22:48 | DI.US.S_ITS ---
PROCEDURE: US ABDOMEN LIMITED INDICATIONS: RUQ/epigastric pain N/V TECHNIQUE: Real-time focused scanning was performed of the abdomen, with image documentation. COMPARISON: None. FINDINGS: Liver is normal in size and homogeneous in echotexture. Gallbladder is sonographically normal. No gallstones. No gallbladder wall thickening. No pericholecystic fluid. No sonographic Ramos sign. Biliary tree is nondilated. Common bile duct measures 3.4 millimeters. Pancreas is sonographically normal. IMPRESSION: Normal examination without sonographic evidence of cholelithiasis or cholecystitis. If there is continued clinical concern for cholecystitis, a nuclear medicine HIDA scan should be considered for further evaluation. Dictated by: Jennifer Plata MD, PhD on 12/10/2019 at 8:43 Approved by: Jennifer Plata MD, PhD on 12/10/2019 at 8:44
[2019-12-10] MEDS: HYDROMORPHONE 0.5 MG INJ IV (00:09)
[2019-12-10 00:31] LABS: COVID19 -Nasal RAPID Negative (Negative)
[2019-12-10] MEDS: CIPROFLOXACIN 500 MG TABLET PO (00:57)
== END 2019-12-10 01:30 | disposition home or self-care (01) ==
PROVIDERS: Emergency Provider Student in an Organized Health Care Education/Training Program; Family Provider Family Medicine; PCP Family Medicine; Referring Provider Physician Assistant Medical
DX: N12 Tubulo-interstitial nephritis, not specified as acute or chronic (principal); R11.2 Nausea with vomiting, unspecified; R10.2 Pelvic and perineal pain
CPT/HCPCS: 36415; 51798; 74177; 76705; 76830; 76856; 80053; 81001; 81003; 81025; 83690; 85025; 87210; 87635; 96361; 96374; 96375; 96376; 99284; 99285; J1170; J2405; Q9967

== ENCOUNTER → 2019-12-27 14:51 | Outpatient (CLI) | payer OTHER, SELFPAY ==
[2019-12-27 15:59] LABS: Alanine Aminotransferase 19 IU/L (<35); Albumin 4.3 g/dL (3.5-5.0); Albumin Globulin Ratio 1.3 (1.0-2.8); Alkaline Phosphatase 71 U/L (38-126); Aspartate Aminotransferase 29 IU/L (14-36); Bilirubin Total 0.3 mg/dL (0.2-1.3); Bilirubin Unconjugated 0.1 mg/dL (0.0-1.1); Globulin 3.3 g/dL (1.7-4.1); HEMOLYSIS < 15 (0-50); Total Protein 7.6 g/dL (6.3-8.2)
== END ==
PROVIDERS: Family Provider Family Medicine; PCP Family Medicine; Referring Provider Obstetrics & Gynecology; Visit Provider Obstetrics & Gynecology
DX: R10.11 Right upper quadrant pain (principal)
CPT/HCPCS: 36415; 80076

== ENCOUNTER → 2020-01-04 14:29 | Outpatient (CLI) | payer OTHER, SELFPAY ==
[2020-01-04 15:17] LABS: Bacteria Urine None Seen
[2020-01-04 16:16] LABS: Appearance Urine UA CLEAR; Bilirubin Urine UA NEGATIVE (NEGATIVE); Color Urine UA YELLOW; Glucose Urine UA NEGATIVE (Negative); Ketones Urine UA NEGATIVE (NEGATIVE); Leukocyte Esterase Urine UA NEGATIVE (NEGATIVE); Nitrite Urine UA NEGATIVE (Negative); Occult Blood Urine UA 1+ (Negative); Protein Urine UA NEGATIVE (Negative); Urobilinogen Urine UA 0.2 E.U./dL (0.2)
[2020-01-04 16:54] LABS: Culture Indicated Urine Cult Not Indicated; RBC Urine 1-5/HPF (0-5/HPF); Squamous Epithelial Cell Urine 1-5 /HPF (0-5/HPF); WBC Urine 0-1/HPF (0-5/HPF)
== END ==
PROVIDERS: Family Provider Family Medicine; PCP Family Medicine; Referring Provider Obstetrics & Gynecology; Visit Provider Obstetrics & Gynecology
DX: R30.0 Dysuria (principal)
CPT/HCPCS: 81001

== ENCOUNTER → 2020-01-24 15:00 | Outpatient (CLI) | payer OTHER, SELFPAY ==
[2020-01-24 16:47] LABS: Cancer Antigen 125 8.8 U/mL (0-35)
== END ==
PROVIDERS: Family Provider Family Medicine; PCP Family Medicine; Referring Provider Obstetrics & Gynecology; Visit Provider Obstetrics & Gynecology
DX: N83.201 Unspecified ovarian cyst, right side (principal)
CPT/HCPCS: 36415; 86304

== ENCOUNTER → 2020-02-09 14:11 | Outpatient (CLI) | payer OTHER, SELFPAY ==
[2020-02-09 14:26] LABS: Bacteria Urine None Seen; RBC Urine None Seen (0-5/HPF); WBC Urine None Seen (0-5/HPF)
[2020-02-09 14:41] LABS: Appearance Urine UA CLEAR; Bilirubin Urine UA NEGATIVE (NEGATIVE); Color Urine UA YELLOW; Glucose Urine UA NEGATIVE (Negative); Ketones Urine UA NEGATIVE (NEGATIVE); Leukocyte Esterase Urine UA NEGATIVE (NEGATIVE); Nitrite Urine UA NEGATIVE (Negative); Occult Blood Urine UA NEGATIVE (Negative); Protein Urine UA NEGATIVE (Negative); Specific Gravity Urine UA <=1.005 (1.000-1.035); Urobilinogen Urine UA 0.2 E.U./dL (0.2)
[2020-02-09 15:05] LABS: pH Urine UA 6.5 (4.5-8.0)
[2020-02-09 15:22] LABS: Culture Indicated Urine Cult Not Indicated; Urine Comments Microscopic Normal
== END ==
PROVIDERS: Family Provider Family Medicine; PCP Family Medicine; Referring Provider Obstetrics & Gynecology; Visit Provider Obstetrics & Gynecology
DX: R10.2 Pelvic and perineal pain (principal); R35.0 Frequency of micturition
CPT/HCPCS: 81001

== ENCOUNTER → 2021-10-08 13:04 | Outpatient (CLI) | payer OTHER, SELFPAY ==
--- NOTE | 2021-10-08 13:07 | DI.RAD.S_ITS ---
PROCEDURE: XR KNEE RT 3V INDICATIONS: Pain in right knee TECHNIQUE: 3 views of the knee were acquired. COMPARISON: None. FINDINGS: Bones: No fractures or dislocations. No suspicious bony lesions. Mild narrowing of the medial femorotibial joint and tricompartmental periarticular osteophyte formation. Soft tissues: Small joint effusion. No suspicious soft tissue calcifications. IMPRESSION: Mild tricompartmental knee joint degeneration, most notably involving the medial femorotibial joint. Dictated by: Walter Gibbs [facility] Interpreted: Ortiz Collins MD on 10/08/2021 at 14:07 Transcribed by: SHANDA on 10/08/2021 at 14:08 Approved by: Ortiz Collins M.D. on 10/08/2021 at 16:14
== END ==
PROVIDERS: Family Provider Family Medicine; PCP Family Medicine; Referring Provider Family Medicine; Visit Provider Family Medicine
DX: M25.561 Pain in right knee (principal); M17.11 Unilateral primary osteoarthritis, right knee
CPT/HCPCS: 73562

== ENCOUNTER → 2023-03-07 17:42 | Outpatient (CLI) | payer OTHER, SELFPAY ==
--- NOTE | 2023-03-07 17:43 | DI.MG.S_ITS ---
BILATERAL DIGITAL SCREENING MAMMOGRAM 3D/2D WITH CAD: 03/07/2023 CLINICAL: Routine screening. Comparison is made to exams dated: 02/01/2015 mammogram and 01/18/2011 mammogram - [facility]. Both breasts are heterogeneously dense, which may obscure small masses (category c / 51-75% glandular tissue). Current study was also evaluated with a Computer Aided Detection (CAD) system. There is an oval lymph node in the right breast posterior depth superior region seen on the mediolateral oblique view only. No other significant masses, calcifications, or other findings are seen in either breast. IMPRESSION: INCOMPLETE: NEEDS ADDITIONAL IMAGING EVALUATION The oval enlarged lymph node in the right breast is indeterminate. An axillary ultrasound is recommended. Based on the Tyrer Cuzick model (a risk assessment model) the patient's lifetime risk is 9.6% and her 10 year risk is 2.6%. According to the ACR, ACS, and NCCN guidelines, an annual breast MRI exam along with mammogram is recommended if the patient's lifetime risk is 20% or greater. This exam was interpreted at Station ID: [id number]. NOTE: For mammograms, a report in lay terms will be sent to the patient. Approximately 15% of breast malignancies will not be visualized mammographically. In the management of a palpable breast mass, a negative mammogram must not discourage biopsy of a clinically suspicious lesion. Electronically Signed By: Jaziel Brooks M.D. aty/:03/10/2023 07:35:12 letter sent: Additional Imaging Needed ACR BI-RADS Category 0: Incomplete 3340F
== END ==
PROVIDERS: Family Provider Family Medicine; PCP Family Medicine; Referring Provider Family Medicine; Visit Provider Family Medicine
DX: Z12.31 Encounter for screening mammogram for malignant neoplasm of breast (principal)
CPT/HCPCS: 77063; 77067

== ENCOUNTER → 2023-03-14 14:15 | Outpatient (CLI) | payer OTHER, SELFPAY ==
--- NOTE | 2023-03-14 | DI.US.S_ITS ---
ULTRASOUND OF RIGHT AXILLA: 03/14/2023 CLINICAL: Patient returns today to evaluate lymph nodes in the right axilla. Comparison is made to exams dated: 03/07/2023 mammogram, 02/01/2015 mammogram, and 01/18/2011 mammogram - [facility]. Color flow and real-time ultrasound of the right axilla were performed. Churchill scale images of the real-time examination were reviewed. Right axillary nodes are normal in size with preserved fatty hilums and no cortical thickening. IMPRESSION: BENIGN There is no sonographic evidence of malignancy. No enlarged right axillary lymph nodes. Exam findings were conveyed to the patient. A 1 year screening mammogram is recommended. This exam was interpreted at Station ID: [id number]. Electronically Signed By: Arian Aguilera M.D. slc/:03/14/2023 15:05:41 letter sent: Normal Exam Ultrasound BI-RADS: 2 Benign
== END ==
LOC: US 14:17
PROVIDERS: Family Provider Family Medicine; PCP Family Medicine; Referring Provider Family Medicine; Visit Provider Family Medicine
DX: R92.8 Other abnormal and inconclusive findings on diagnostic imaging of breast (principal)
CPT/HCPCS: 76882

== ENCOUNTER 2023-05-14 08:21 | Emergency (ER) | payer OTHER, SELFPAY ==
[2023-05-14 08:35] VITALS: BP 187/93; PULSE 77; RESP 18; TEMP 36.4; O2SAT 100; BMI 29.9
--- NOTE | 2023-05-14 08:36 | ED.BACK ---
HPI - Back Pain/Injury General Chief Complaint: Back Pain/Injury Stated Complaint: lower back pain, poss kidney related per pt Time Seen by Provider: 05/14/23 08:35 Source: patient, RN notes reviewed and old records reviewed Mode of arrival: Ambulatory Limitations: no limitations History of Present Illness HPI Narrative: This is a 52-year-old female with history of lumbar fusion, bilateral hip replacement, chronic back pain who presents with complaint of acute on chronic left-sided low back pain. Patient states it sort of wraps around towards the front she also notes some paresthesias in the left posterior back and wrapping around. Patient states she has had back pain chronically, she states it is normally manageable, she gets massage twice monthly. She notes she has been recently carrying her new grandchild who weighs 11 lb and maybe exacerbating her symptoms. She does not recall any other injuries or trauma lately. Patient states starting Friday she started to notice some increased discomfort in her lower back, has been sort of slowly increasing over time and localizing more to the left and wrapping around over the hip. Patient states she does have a history of paresthesias from her prior spinal stenosis. Mostly just in her left toes. That has not changed. She has not had increased pain down her legs. She denies fevers or chills. No cold cough or congestion. No GI or urinary symptoms. Pain has become increasingly more uncomfortable and she has not been able to manage it with home medications. She is on sertraline, meloxicam, she takes [place] 10/325 q.i.d. PRN, gabapentin 300 mg nightly. Patient states she took her [place] last night she does not always have to take it 4 times daily but it has not been able to control her pain. Patient had her surgery at [facility] proximally 8 years ago. Related Data Home Medications Medication Instructions Recorded Confirmed gabapentin 300 mg capsule 300 mg PO BID 12/27/19 02/15/20 hydrocodone 10 mg-acetaminophen 1 tab PO Q8H PRN 12/27/19 02/15/20 325 mg tablet meloxicam 7.5 mg tablet 7.5 mg PO DAILY 12/27/19 02/15/20 sertraline 25 mg tablet 25 mg PO DAILY 12/27/19 02/15/20 zolpidem 5 mg tablet (Ambien) 5 mg PO BEDTIME PRN 12/27/19 02/15/20 Previous Rx's Medication Instructions Recorded oxycodone-acetaminophen 5 mg-325 1 tab PO Q8H PRN pain #14 tabs 12/10/19 mg tablet estradiol 2 mg (7.5 mcg/24 hour) 1 vag ring vaginal [id number] #3 ea 03/26/23 vaginal ring (Estring) gabapentin 300 mg capsule 300 mg PO TID #30 caps 05/14/23 oxycodone 5 mg tablet 5 mg PO QID PRN pain #10 tabs 05/14/23 Allergies Allergy/AdvReac Type Severity Reaction Status Date / Time codeine Allergy Verified 05/14/23 08:35 Review of Systems Review of Systems ROS Unobtainable: All systems reviewed & are unremarkable except as noted in HPI and below Patient History Medical History Fibromyalgia (~2009) Chronic back pain Deep vein thrombosis (~2014) Social History Smoking Status: Never smoker Smoking Status: Never smoker alcohol intake frequency: a few times a month Alcohol type: wine Substance Use Type: does not use Exam Narrative Exam Narrative: GENERAL: Alert and oriented x three, mild distress. HEENT: Head normocephalic, atraumatic, EOMI, pupils reactive, face symmetric, moist mucous membranes NECK: Supple, full range of motion CARDIOVASCULAR: Regular rate and rhythm without murmurs, rubs or gallops. RESPIRATORY: Breath sounds equal bilaterally, no wheezes rales or rhonchi. ABDOMEN: Soft, nontender. Normoactive bowel sounds all 4 quadrants. No guarding or rebound, rigidity, no mass : No CVA tenderness bilaterally. BACK: No cervical, thoracic or lumbar vertebral point tenderness. Patient does have tightness over the left lower lumbar. Patient has normal range of motion. Patient's gait is normal. Rectal exam is deferred. Muscle strength is 5/5 in lower extremities, neurovascularly intact. EXTREMITIES: Normal range of motion, no clubbing or edema. Neurovascularly intact NEUROLOGICAL: Cranial nerves II through XII grossly intact. Moving all extremities SKIN: Warm, dry, no petechiae, no rashes or lesions, erythema or blisters or other skin changes. Initial Vital Signs Initial Vital Signs: Vital Signs Temperature 97.6 F 05/14/23 08:35 Pulse Rate 77 05/14/23 08:35 Respiratory Rate 18 05/14/23 08:35 Blood Pressure 187/93 H 05/14/23 08:35 Pulse Oximetry 100 05/14/23 08:35 Oxygen Delivery Method Room Air 05/14/23 08:35 Course Orders Ordered: Discontinued Medications Oxycodone/Acetaminophen (Oxycodone/Acetaminophen 5/325 Tablet) 2 tab PO NOW ONE Stop: 05/14/23 09:13 Last Admin: 05/14/23 09:26 Dose: 2 tab Documented By: BRANDT Vital Signs Vital signs: Vital Signs - 8 hr 05/14/23 08:35 Temperature 97.6 F Pulse Rate 77 Respiratory Rate 18 Blood Pressure 187/93 H Pulse Oximetry 100 Oxygen Delivery Method Room Air MDM - Back Pain/Injury Lab Data Labs: Urine Dip Bedside Urine Glucose Negative Bedside Urine Bilirubin - Negative Bedside Urine Ketone - Negative Urine Specific [place] 1.015 Bedside Urine Occult Blood - Negative Bedside Urine pH 6.0 Bedside Urine Protein - Negative Bedside Urine Urobilinogen - Negative Bedside Urine Nitrite - Negative Bedside Urine Leukocytes - Negative Esterase Imaging Data lspine xray: Radiologist's Impression: [address] [address] XRay Report Signed Patient: Marina Ellis MR#: [id number] : 1970 Acct:[id number] Age/Sex: 52 / F Date of Service: 05/14/23 Loc: ED Accession Number: [id number] Procedure: XR lumbar spine 2-3V Ordering Provider: Staci Darby D.O. PROCEDURE: XR LUMBAR SPINE 2-3V INDICATIONS: acute on chronic back pain, has hardware. TECHNIQUE: 3 views of the lumbar spine were acquired. COMPARISON: None. FINDINGS: Bones: L4-L5 fusion has been performed. 5 [id number]-hej-[id number] vertebrae are present. There is normal bony alignment. No vertebral body compression fractures. No suspicious bony lesions. Soft tissues: Overlying bowel gas pattern is normal. No suspicious soft tissue calcifications. IMPRESSION: No acute fracture. No osseous lesion. If symptoms and/or clinical suspicion for pathology persist, further assessment with repeat, or advanced imaging (e.g., CT, MRI, or bone scan) may be helpful for further assessment. Dictated by: Delfino Rollins M.D. on 05/14/2023 at 9:29 Approved by: Delfino Rollins M.D. on 05/14/2023 at 9:29 [facility] Narrative Medical decision making narrative: 52-year-old female with acute on chronic low back pain more on the left wrapping around towards the hip, patient does note some paresthesias in that area as well which are new. She does not have any extending down her legs. She does have a history of spinal stenosis had lumbar fusion proximally 8 years ago. Patient had bilateral lower extremity paresthesias at that time which improved but still has a little bit of change in the toes which never resolved. Patient's exam is overall benign. She has pain a little bit lower more over the SI region and wrapping over the hip with a negative point of care urine making pyelonephritis or kidney stone unlikely. She does not have any anterior abdominal pain. No redness or skin changes consistent with shingles or rash. No red flag symptoms patient was concerned about her hardware having any sort of change or movement so x-ray was obtained. This shows Discussed with patient can increase her gabapentin to 3 times daily to see if this is helpful. We will also give a short course of narcotic pain medication slightly higher dose. Patient was asked to follow up with primary care or her back surgeon if symptoms are persisting. Discharge Plan Departure Patient Disposition: Home Clinical Impression: Acute exacerbation of chronic low back pain Instructions: DI for Low Back Pain Activity Restrictions/Additional Instructions: Please follow up with your primary care or your back surgeon for recheck if your symptoms are not improving. Continue your home medications including your meloxicam. You may take Tylenol a 1000 mg every 6 hours as needed for pain. I would recommend increasing your gabapentin to 300 mg 3 times daily. If this is helpful it can be titrated upwards by your physician. You may also take oxycodone 1-2 tablets every 6 hours as needed. This medication can make you sleepy do not drive, perform hazardous activities or make any major decisions while taking it. This medication will make you constipated please take a stool softener once to twice daily until stools are soft and regular. Prescription sent to [facility] in [place]. Please return for fevers, rapidly worsening symptoms, vomiting, loss of bowel or bladder control, inability to lift or move your leg, loss of sensation on an extremity or other new or concerning changes. Prescriptions: New oxycodone 5 mg tablet 5 mg PO QID PRN (Reason: pain) Qty: 10 0RF gabapentin 300 mg capsule 300 mg PO TID Qty: 30 0RF No Action Estring 2 mg (7.5 mcg /24 hour) ring 1 vag ring vaginal [id number] Qty: 3 0RF meloxicam 7.5 mg tablet 7.5 mg PO DAILY sertraline 25 mg tablet 25 mg PO DAILY zolpidem [Ambien] 5 mg tablet 5 mg PO BEDTIME PRN gabapentin 300 mg capsule 300 mg PO BID hydrocodone-acetaminophen 10-325 mg tablet 1 tab PO Q8H PRN oxycodone-acetaminophen 5-325 mg tablet 1 tab PO Q8H PRN (Reason: pain) Qty: 14 0RF Referrals: Ej Tenorio DO [Primary Care Provider] - Stand Alone Forms: Patient Portal/API, Work Release Note
--- NOTE | 2023-05-14 09:11 | DI.RAD.S_ITS ---
PROCEDURE: XR LUMBAR SPINE 2-3V INDICATIONS: acute on chronic back pain, has hardware. TECHNIQUE: 3 views of the lumbar spine were acquired. COMPARISON: None. FINDINGS: Bones: L4-L5 fusion has been performed. 5 wtx-hzk-wonhpeo vertebrae are present. There is normal bony alignment. No vertebral body compression fractures. No suspicious bony lesions. Soft tissues: Overlying bowel gas pattern is normal. No suspicious soft tissue calcifications. IMPRESSION: No acute fracture. No osseous lesion. If symptoms and/or clinical suspicion for pathology persist, further assessment with repeat, or advanced imaging (e.g., CT, MRI, or bone scan) may be helpful for further assessment. Dictated by: Delfino Rollins M.D. on 05/14/2023 at 9:29 Approved by: Delfino Rollins M.D. on 05/14/2023 at 9:29
[2023-05-14] MEDS: OXYCODONE/ACETAMINOPHEN 5/325 TABLET 2 TAB PO (09:26)
== END 2023-05-14 10:00 | disposition home or self-care (01) ==
PROVIDERS: Emergency Provider Emergency Medicine; Family Provider Family Medicine; PCP Family Medicine
DX: M54.50 Low back pain, unspecified (principal)
CPT/HCPCS: 72100; 81003; 99283

== ENCOUNTER → 2023-09-15 15:04 | Outpatient (CLI) | payer OTHER, SELFPAY ==
--- NOTE | 2023-09-15 16:00 | DI.MRI.S_ITS ---
PROCEDURE: MR CERVICAL SPINE WO CON INDICATIONS: NUMBNESS IN RIGHT HAND TECHNIQUE: Noncontrast sagittal T1 spin echo and T2 fast spin echo, sagittal STIR, foraminal oblique sagittal T2 fast spin echo, and axial gradient echo or T2 fast spin echo through the cervical spine. COMPARISON: None. FINDINGS: Image quality: Excellent. Alignment and Curvature: Straightening of the normal cervical lordosis. Mild anterolisthesis of C3 on C4 and C4 on C5. Mild retrolisthesis of C5 on C6. Bone Marrow: Marrow demonstrates normal overall signal. Spinal Cord: Visualized spinal cord has normal size and signal. No cerebellar tonsillar herniation. Paraspinous Soft Tissues: No paravertebral masses. Prevertebral soft tissues are normal in thickness. C2-C3: No central canal stenosis. Facet and uncovertebral arthropathy. Mild right and no left neural foraminal stenosis. C3-C4: Disc desiccation. No central canal stenosis. Facet and uncovertebral arthropathy. Mild left and no significant right neural foraminal stenosis. C4-C5: Disc desiccation and mild posterior disc osteophyte complex. Mild central canal stenosis. Facet and uncovertebral arthropathy. Moderate right and mild left neural foraminal stenosis. C5-C6: Disc desiccation and moderate disc height loss. Mild posterior disc osteophyte complex. Mild central canal stenosis. Facet and uncovertebral arthropathy. Moderate bilateral foraminal stenosis, left greater than right. C6-C7: Normal appearance. C7-T1: Normal appearance. IMPRESSION: 1. Multilevel degenerative changes of the cervical spine as described above. 2. Mild central canal stenosis at C4-C5 and C5-C6. 3. Moderate neural foraminal stenosis on the right at C4-C5 and bilaterally at C5-C6. Dictated by: Selwyn Ayon M.D. on 09/15/2023 at 16:42 Approved by: Selwyn Ayon M.D. on 09/15/2023 at 16:45
== END ==
PROVIDERS: Family Provider Family Medicine; PCP Family Medicine; Referring Provider Family Medicine; Visit Provider Family Medicine
DX: M47.22 Other spondylosis with radiculopathy, cervical region (principal); M48.02 Spinal stenosis, cervical region
CPT/HCPCS: 72141

== ENCOUNTER → 2024-08-25 16:19 | Outpatient (CLI) | payer OTHER, SELFPAY ==
--- NOTE | 2024-08-25 16:20 | DI.MG.S_ITS ---
MM screening mammo BI: 08/25/2024. BI-RADS: 1 CLINICAL: 53-year old female for bilateral screening mammogram. Tyrer-Cuzick lifetime risk of 9.3%. No personal or first-degree family history of breast cancer. PRIOR EXAMS 03/14/2023, 03/07/2023, 02/01/2015. MAMMOGRAPHY TECHNIQUE: 2D and 3D (tomosynthesis) digital mammographic views obtained, with additional images as needed for full coverage. Current study was also evaluated with a Computer Aided Detection (CAD) system. DENSITY C. The breasts are heterogeneously dense, which may obscure small masses. MAMMOGRAPHY FINDINGS Bilateral: No suspicious mass, asymmetry, microcalcification, or other abnormality seen. IMPRESSION: * No evidence of malignancy. RECOMMENDATIONS Bilateral * Annual screening mammography. OVERALL ASSESSMENT CATEGORY BI-RADS-1: Negative. The [employer] [place] recommends annual screening mammography beginning at age 40 for women with average risk of breast cancer. ELECTRONICALLY SIGNED: Jaziel Brooks M.D. on 08/29/2024 at 09:45:38 PM PT Interpreting Station ID: [id number]
== END ==
PROVIDERS: Family Provider Family Medicine; PCP Family Medicine; Referring Provider Family Medicine; Visit Provider Family Medicine
DX: Z12.31 Encounter for screening mammogram for malignant neoplasm of breast (principal); R92.333 Mammographic heterogeneous density, bilateral breasts
CPT/HCPCS: 77063; 77067